=== PATIENT | male | born 1985 | race Caucasian/White ===

== ENCOUNTER 2024-11-15 11:08 | Emergency (ER) | payer BC, SELFPAY ==
[2024-11-15] VITALS (13 sets, daily range): BP systolic 144–147; BP diastolic 87–95; PULSE 69–94; TEMP 36.7; O2SAT 94–99; BMI 32.7
--- NOTE | 2024-11-15 11:28 | XR_ITS ---
[facility] [place] [id number] Patient Name: JEN KRISHNA MRN: [id number] date: 1985 Sex: M Assigned Patient Location: ER Current Patient Location: ER Accession/Order Number: [id number] Exam Date: 11/15/2024 11:57 Report Date: 11/15/2024 11:58 At the request of: LUIZ HERNADEZ MD Procedure: XR chest 1V PORTABLE AP ERECT CHEST 0127 hours CLINICAL HISTORY: Dizziness with near syncope at work today COMPARISON: None The heart is within normal limits. There is no vascular congestion. The lungs, as visualized, are clear. There is no effusion or pneumothorax. The osseous structures are intact. There is dextroscoliotic curvature and endplate spurring. XR/XR chest 1V IMPRESSION: NO ACUTE FINDINGS Impression dictated by: Cyn Ley M.D. 11/15/2024 11:58 AM Dictation Location: [place] [address] Electronically authenticated by: [id number] Y Date: 11/15/2024 11:58
--- NOTE | 2024-11-15 11:28 | ECG_ITS ---
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 Measurements Intervals [place] Rate: 86 P: 33 TX: 140 QRS: 6 QRSD: 86 T: 27 QT: 358 QTc: 401 Interpretive Statements 1100 Sinus rhythm 9110 normal ECG No previous ECG available for comparison Electronically Signed On 11-15-2024 20:47:52 EDT by MARLON CHAVIS M.D.
--- NOTE | 2024-11-15 11:30 | ED_ITS ---
HPI HPI - General Adult General Chief complaint: Dizziness Stated complaint: WEAKNESS Time Seen by Provider: 11/15/24 11:15 Source: patient Mode of arrival: walk-in Limitations: no limitations History of Present Illness HPI narrative: 39-year-old male presented to the emergency department for dizziness. He felt lightheaded, not vertiginous. He started feeling weak yesterday at work where it is very hot and he had to go home early. Today he got to work and he felt well but then he got lightheaded and had to sit down. Subsequently he stood up and got lightheaded again and did not have a syncopal episode but had to sit down. He did not injure himself in any way. Related Data Previous Rx's ?Medication ?Instructions ?Recorded metformin 500 mg tablet 500 mg PO BID #60 tabs 11/15 Allergies Allergy/AdvReac Type Severity Reaction Status Date / Time No Known Drug Allergies Allergy Verified 11/15/24 11:13 Review of Systems ROS Narrative A ten point review of systems is negative except as noted above. PFSH PFSH Social History Little interest or pleasure in doing things: not at all Feeling down, depressed, or hopeless: not at all Exam Narrative Exam Narrative: Nurses note and vital signs reviewed and patient is not hypoxic. General: The patient appears well and in no apparent distress. Patient is res ting comfortably on cart. Skin: Warm, dry, no pallor noted. There is no rash noted. Head: Normocephalic, atraumatic Eye: Normal conjunctiva, no drainage Ears, Nose, Mouth, and Throat: oral mucosa is moist. Nares patent. Cardiovascular: Regular Rate and Rhythm Respiratory: Patient is in no distress, no accessory muscle use, lungs are clear to auscultation, no wheezing, rales or rhonchi Back: non-tender GI: Soft and nontender Musculoskeletal: The patient has no evidence of calf tenderness, no pitting edema, symmetrical pulses noted bilaterally Neurological: A&O, normal speech Psychiatric: Cooperative Constitutional Vital Signs, click to edit/add: Last Vital Signs Temp 98.1 F 11/15/24 11:13 Pulse 84 11/15/24 12:43 Resp 16 11/15/24 12:43 BP 147/87 H 11/15/24 12:48 Pulse Ox 95 11/15/24 12:40 O2 Del Method Room Air 07/29/25 11:13 Course Vital Signs Vital signs: Vital Signs Temperature 98.1 F 11/15/24 11:13 Pulse Rate 94 H 11/15/24 11:13 Respiratory Rate 18 11/15/24 11:13 Blood Pressure 144/95 H 11/15/24 11:13 Pulse Oximetry 99 11/15/24 11:13 Oxygen Delivery Method Room Air 11/15/24 11:13 Temperature 98.1 F 11/15/24 11:13 Pulse Rate 84 11/15/24 12:43 Respiratory Rate 16 11/15/24 12:43 Blood Pressure 147/87 H 11/15/24 12:48 Pulse Oximetry 95 11/15/24 12:40 Oxygen Delivery Method Room Air 11/15/24 11:13 Medical Decision Making MDM Narrative Medical decision making narrative: Blood sugar is at 1 rated at 366. He does not require admission in the hospital and is prescribed metformin. PCP list was given and the importance of prompt follow-up was discussed. He was also given information on diet and other aspects of diabetes. Treatment diagnosis and follow-up were discussed with the patient and his . Differential Diagnosis Differential Diagnosis: Diabetes, dehydration, anemia, heat exhaustion Lab Data Lab results reviewed: Yes I reviewed the patient's lab results Labs: Lab Results 11/15/24 Range/Units 11:25 WBC 10.1 (4.0-11.0) 10^3/uL RBC 5.40 (4.70-6.10) 10^6/uL Hgb 15.6 (14.0-18.0) g/dL Hct 43.9 (42.0-54.0) % MCV 81.3 (80.0-94.0) fL MCH 28.9 (25.9-34.0) pg MCHC 35.5 H (29.9-35.2) g/dL RDW 12.5 (11.0-15.0) % Plt Count 219 (150-450) 10^3/uL MPV 9.5 (9.5-13.5) fL Neut % (Auto) 56.8 (43.0-75.0) % Lymph % (Auto) 34.2 (20.5-60.0) % [place] % (Auto) 6.8 (1.7-12.0) % Eos % (Auto) 1.4 (0.9-7.0) % Baso % (Auto) 0.4 (0.2-2.0) % Neut # (Auto) 5.7 (1.4-6.5) 10^3/uL Lymph # (Auto) 3.4 (1.2-3.8) 10^3/uL [place] # (Auto) 0.7 (0.3-0.8) 10^3/uL Eos # (Auto) 0.1 (0.0-0.7) 10^3/uL Baso # (Auto) 0.0 (0.0-0.1) 10^3/uL Abs Immat Gran (auto) 0.04 H (0.00-0.03) 10^3/uL Imm/Tot Granulo (auto) 0.4 (0.0-0.5) % Sodium 131 L (136-145) mmol/L Potassium 3.7 (3.5-5.1) mmol/L Chloride 96 L (98-107) mmol/L Carbon Dioxide 24.0 (21.0-32.0) mmol/L Anion Gap 14.7 BUN 10.0 (7.0-18.0) mg/dL Creatinine 1.01 (0.70-1.30) mg/dL Est GFR ( Amer) >60 (>=60 mL/min/1.73m^2) Est GFR (Non-Af Amer) >60 (>=60 mL/min/1.73m^2) BUN/Creatinine Ratio 9.9 Glucose 366 H (74-106) mg/dL Calcium 8.9 (8.5-10.1) mg/dL Troponin I High Sens <4.0 L (4.0-76.1) pg/mL ECG Data Attestation: I personally reviewed and interpreted this ECG as follows: (EKG on my interpretation shows sinus rhythm with rate of 86 and no acute change) Discharge Plan Discharge Chief Complaint: Dizziness Clinical Impression: Diabetes mellitus, new onset Patient Disposition: Home, Self-Care Time of Disposition Decision: 12:54 Condition: Good Mode of Transportation: Private Vehicle Prescriptions / Home Meds: New metformin 500 mg tablet 500 mg PO BID Qty: 60 0RF Print Language: Albanian Instructions: Type 2 Diabetes in Adults: New Diagnosis (DC), Basic Carbohydrate Counting (DC), Diabetes and Nutrition (ED), Type 2 Diabetes Management for Adults (ED) Referrals: Physician,Non-Staff, MD [Primary Care Provider] - 1 week
[2024-11-15 11:36] LABS: Hematocrit 43.9 % (42.0-54.0); Hemoglobin 15.6 g/dL (14.0-18.0); Immature Granulocytes Abs Auto 0.04 10^3/uL (0.00-0.03); Immature Granulocytes Pct Auto 0.4 % (0.0-0.5); Lymphocytes Absolute Auto 3.4 10^3/uL (1.2-3.8); Mean Corpuscular HGB Conc 35.5 g/dL (29.9-35.2); Mean Corpuscular Hemoglobin 28.9 pg (25.9-34.0); Mean Corpuscular Volume 81.3 fL (80.0-94.0); Platelet Count 219 10^3/uL (150-450); Red Blood Count 5.40 10^6/uL (4.70-6.10); White Blood Count 10.1 10^3/uL (4.0-11.0)
[2024-11-15] MEDS: 0.9 % SODIUM CHLORIDE 1,000 ML 1000 ML IV (11:40)
[2024-11-15 11:55] LABS: Anion Gap 14.7; Blood Urea Nitrogen 10.0 mg/dL (7.0-18.0); Calcium 8.9 mg/dL (8.5-10.1); Carbon Dioxide 24.0 mmol/L (21.0-32.0); Chloride 96 mmol/L (98-107); Estimated GFR (African America >60 (>=60 mL/min/1.73m^2); Estimated GFR (Non-African Ame >60 (>=60 mL/min/1.73m^2); Glucose 366 mg/dL (74-106); Potassium 3.7 mmol/L (3.5-5.1); Sodium 131 mmol/L (136-145)
[2024-11-15 12:52] LABS: Glucose Urine UA >=1000 mg/dL (NEGATIVE)
[2024-11-15 13:19] LABS: Cast Seen? NONE SEEN #/LPF (NONE SEEN); Crystals Seen? None Seen #/HPF (None Seen)
== END 2024-11-15 13:12 | disposition home or self-care (01) ==
PROVIDERS: Emergency Provider Emergency Medicine
DX: E11.9 Type 2 diabetes mellitus without complications (principal); R42 Dizziness and giddiness
CPT/HCPCS: 36415; 71045; 80048; 81001; 84484; 85025; 93005; 99285